=== PATIENT | female | born 1980 | race Two or more races ===

== ENCOUNTER 2023-11-14 12:07 | Emergency (ER) | payer OTHER ==
[~2023-11-14] VITALS: Ht 152.4 cm; Wt 72.7 kg
[2023-11-14 12:09] VITALS: TEMP 98
[2023-11-14 13:07] LABS: APPEARANCE,URINE HAZY (CLEAR); BILIRUBIN,URINE NEGATIVE (NEGATIVE); COLOR,URINE YELLOW (YELLOW); GLUCOSE, URINE (UA) NEGATIVE (NEGATIVE); HCG,QUAL URINE NEGATIVE (NEGATIVE); KETONES,URINE NEGATIVE (NEGATIVE); LEUKOCYTE ESTERASE ,URINE LARGE (NEGATIVE); NITRATE,URINE NEGATIVE (NEGATIVE); OCCULT BLOOD,URINE LARGE (NEGATIVE); PH,URINE 5.5 (5.0-8.0); PROTEIN,URINE 30-70 mg/dL (NEGATIVE); SPECIFIC GRAVITIY, URINE 1.019 (1.003-1.030); UROBILINOGEN,URINE <=1.0 mg/dL (<=1.0)
[2023-11-14 13:17] LABS: WBC,URINE 26-50 /HPF (0-5)
[2023-11-14 13:18] LABS: BACTERIA,URINE Many /HPF (None Seen); SQUAMOUS EPITHELIAL CELL,UR Moderate /LPF (None Seen)
[2023-11-14 14:17] VITALS: BP 128/86; PULSE 82; RESP 18
[2023-11-14] MEDS ORDERED: CEPH-558 PO (14:21)
[2023-11-14] MEDS ORDERED: PHEN-846 PO (14:21)
[2023-11-14] MEDS ORDERED: IBUP-1492 PO (14:21)
[2023-11-14] MEDS: CEPHALEXIN MONOHYDRATE 500 MG CAPSULE PO ONE (14:22)
[2023-11-14] MEDS: PHENAZOPYRIDINE HCL 100 MG TABLET PO ONE (14:22)
== END 2023-11-14 15:34 | disposition home or self-care (01) ==
LOC: EMS 12:07
DX: N30.90 Cystitis, unspecified without hematuria (principal); R10.2 Pelvic and perineal pain; R30.0 Dysuria
CPT/HCPCS: 81001; 84703; 87086; 87186; 99283